=== PATIENT | male | born 1975 | race Asian ===

== ENCOUNTER 2016-10-29 22:15 | Emergency (ER) | payer OTHER ==
[~2016-10-29] VITALS: Ht 162.6 cm; Wt 103.8 kg
[2016-10-29] MEDS ORDERED: CARV3.122 PO (22:49)
[2016-10-29] MEDS ORDERED: GLIP5TAB10 PO (22:49)
[2016-10-29] MEDS ORDERED: LISI2.5T PO (22:49)
[2016-10-29] MEDS ORDERED: LIDOCAINE 1%-EPI 1:100K, 20ML SQ ONE (23:30)
[2016-10-29] MEDS ORDERED: OXYcodone/APAP 5/325MG TABLET PO ONE (23:30)
[2016-10-29] MEDS ORDERED: LIDOCAINE 1%-EPI 1:100K, 20ML ONE (23:32)
[2016-10-29] MEDS ORDERED: OXYcodone/APAP 5/325MG TABLET ONE (23:32)
[2016-10-30 00:37] VITALS: BP 129/73
== END 2016-10-30 00:40 | disposition home or self-care (01) ==
LOC: ED 10-30 00:35
DX: L02.31 Cutaneous abscess of buttock (principal); I10 Essential (primary) hypertension; E11.9 Type 2 diabetes mellitus without complications; Z90.89 Acquired absence of other organs
CPT/HCPCS: 10060; 99283

== ENCOUNTER 2016-11-03 16:32 | Emergency (ER) | payer OTHER ==
[~2016-11-03] VITALS: Ht 162.6 cm; Wt 101.8 kg
[~2016-11-03 16:32] MED LIST: CARV3.122 PO; GLIP5TAB10 PO; LISI2.5T PO
[2016-11-03 16:35] VITALS: BP 138/96
== END 2016-11-03 19:12 | disposition home or self-care (01) ==
LOC: ED 19:05
DX: Z48.01 Encounter for change or removal of surgical wound dressing (principal); I10 Essential (primary) hypertension; E11.9 Type 2 diabetes mellitus without complications; Z90.49 Acquired absence of other specified parts of digestive tract
CPT/HCPCS: 99282

== ENCOUNTER 2017-05-30 15:08 | Emergency (ER) | payer BC, OTHER ==
[~2017-05-30] VITALS: Ht 162.6 cm; Wt 106.5 kg
[~2017-05-30 15:08] MED LIST changes: +AMLO10TA2 PO; +ATOR-2 PO; +HYDR-3342 PO; +LISI-167 PO
[2017-05-30] MEDS ORDERED: SODIUM CHLORIDE FLUSH 10ML SYR IVF ONE (16:00)
[2017-05-30 16:11] LABS: HEMATOCRIT 48.9 % (39.2-51.8); HEMOGLOBIN 15.9 g/dL (13.7-18.0); WHITE BLOOD COUNT 9.1 x10^3/uL (3.4-10)
[2017-05-30 16:18] LABS: BLOOD UREA NITROGEN 24 mg/dL (7-18)
[2017-05-30] MEDS ORDERED: KETOROLAC 30 MG/1 ML ONE (18:22)
[2017-05-30 18:28] VITALS: BP 182/89
[2017-05-30] MEDS ORDERED: KETOROLAC 30 MG/1 ML IM ONE (18:30)
== END 2017-05-30 18:53 | disposition home or self-care (01) ==
LOC: ED 18:47
DX: I10 Essential (primary) hypertension (principal); R51 Headache; E11.9 Type 2 diabetes mellitus without complications
CPT/HCPCS: 36415; 70450; 80048; 82040; 85025; 96372; 99285; J1885

== ENCOUNTER → 2017-07-27 | Outpatient (CLI) | payer BC | END | disposition home or self-care (01) | LOC: CFH 14:21 | PROVIDERS: ATTEND Internal Medicine Nephrology | DX: N28.1 Cyst of kidney, acquired (principal); N18.1 Chronic kidney disease, stage 1 | CPT/HCPCS: 76770 ==

== ENCOUNTER 2018-06-03 09:45 | Emergency (ER) | payer BC, OTHER ==
[~2018-06-03] VITALS: Ht 162.6 cm; Wt 109.1 kg
[~2018-06-03 09:45] MED LIST changes: -AMLO10TA2 PO; +AMLO10TA6 PO
[2018-06-03] MEDS ORDERED: LIDOCAINE-MPF 1%, 5ML ONE (10:20)
[2018-06-03] MEDS ORDERED: OXYcodone/APAP 5/325MG TABLET ONE (10:20)
[2018-06-03] MEDS ORDERED: OXYcodone/APAP 5/325MG TABLET PO ONE (10:30)
[2018-06-03] MEDS ORDERED: LIDOCAINE-MPF 1%, 5ML INFIL ONE (10:30)
[2018-06-03] MEDS ORDERED: CEFTRIAXONE 1,000 MG ONE (10:50)
[2018-06-03 10:57] VITALS: BP 169/91
[2018-06-03] MEDS ORDERED: CEFTRIAXONE 1,000 MG IM ONE (11:00)
== END 2018-06-03 11:44 | disposition home or self-care (01) ==
LOC: ED 11:35
DX: L02.31 Cutaneous abscess of buttock (principal); I10 Essential (primary) hypertension; E11.9 Type 2 diabetes mellitus without complications; Z90.49 Acquired absence of other specified parts of digestive tract
CPT/HCPCS: 10060; 82962; 96372; 99283; J0696

== ENCOUNTER 2018-07-04 15:20 | Emergency (ER) | payer OTHER ==
[~2018-07-04] VITALS: Ht 162.6 cm; Wt 105.2 kg
[2018-07-04 15:35] VITALS: BP 137/70
== END 2018-07-04 16:20 | disposition home or self-care (01) ==
LOC: ED 16:14
DX: H10.89 Other conjunctivitis (principal); B30.8 Other viral conjunctivitis; H00.012 Hordeolum externum right lower eyelid
CPT/HCPCS: 99282

== ENCOUNTER 2018-10-14 04:22 | Emergency (ER) | payer OTHER ==
[~2018-10-14] VITALS: Ht 162.6 cm; Wt 107.0 kg
[~2018-10-14 04:22] MED LIST changes: -AMLO10TA6 PO; +AMLO10TA8 PO
[2018-10-14 04:24] VITALS: BP 167/112
--- NOTE | 2018-10-14 04:34 | NUR ---
C/O RIGHT KNEE PAIN X 3 DAYS; WORSE UPON WAKING THIS AM. NO INJURY. SAME PAIN 2 YEARS AGO BUT NEVER WENT TO [facility] FOR IT. RAJNI BRAUN IN TO [facility] PT. AND DISCUSS POC.
[2018-10-14] MEDS ORDERED: KETOROLAC 30 MG/1 ML ONE (04:48)
--- NOTE | 2018-10-14 04:56 | NUR ---
PT. BACK FROM X-RAY AND MEDICATED PER MAR. AWAITING BLOOD DRAW.
[2018-10-14] MEDS ORDERED: KETOROLAC 30 MG/1 ML IM ONE (05:00)
[2018-10-14 05:11] LABS: BASOPHILS # (AUTO) 0.03 x10^3/uL (0-0.1); BASOPHILS % (AUTO) 0 % (0-1); EOSINOPHILS # (AUTO) 0.17 x10^3/uL (0-0.4); EOSINOPHILS % (AUTO) 2 % (1-7); LYMPHOCYTES # (AUTO) 2.21 x10^3/uL (1-3.4); LYMPHOCYTES % (AUTO) 26 % (22-44); MD NO; MEAN CORPUSCULAR HEMOGLOBIN 26.4 pg (27.5-34.5); MEAN CORPUSCULAR HGB CONC 32.6 g/dL (33.2-36.2); MEAN CORPUSCULAR VOLUME 80.9 fL (81-97); MONOCYTES # (AUTO) 0.61 x10^3/uL (0.2-0.8); MONOCYTES % (AUTO) 7 % (2-9); NEUTROPHILS # (AUTO) 5.41 x10^3/uL (1.8-6.8); NEUTROPHILS % (AUTO) 64 % (42-75); PLATELET COUNT 214 x10^3/uL (130-400); RED BLOOD COUNT 5.87 x10^6/uL (4.38-5.82)
[2018-10-14 05:21] LABS: ALBUMIN 3.4 g/dL (3.4-5.0); ANION GAP 7 mmol/L (5-15); CALCIUM 8.4 mg/dL (8.5-10.1); CHLORIDE 108 mmol/L (98-107)
== END 2018-10-14 05:42 | disposition home or self-care (01) ==
LOC: ED 05:36
DX: M10.061 Idiopathic gout, right knee (principal); E11.65 Type 2 diabetes mellitus with hyperglycemia; I10 Essential (primary) hypertension; I67.4 Hypertensive encephalopathy
CPT/HCPCS: 36415; 73564; 80048; 82040; 84550; 85025; 96372; 99284; J1885

== ENCOUNTER 2019-07-15 02:07 | Emergency (ER) | payer OTHER ==
[~2019-07-15] VITALS: Ht 162.6 cm; Wt 111.0 kg
[2019-07-15 02:10] VITALS: BP 195/106
[2019-07-15] MEDS ORDERED: HYDROcodone/APAP 5/325 TABLET ONE (02:40)
[2019-07-15] MEDS ORDERED: HYDROcodone/APAP 10/325 MG TABLET ONE (02:43)
[2019-07-15 02:49] LABS: BASOPHILS # (AUTO) 0.02 x10^3/uL (0-0.1); BASOPHILS % (AUTO) 0 % (0-1); EOSINOPHILS # (AUTO) 0.04 x10^3/uL (0-0.4); EOSINOPHILS % (AUTO) 0 % (1-7); LYMPHOCYTES # (AUTO) 1.88 x10^3/uL (1-3.4); LYMPHOCYTES % (AUTO) 11 % (22-44); MD NO; MEAN CORPUSCULAR HEMOGLOBIN 26.4 pg (27.5-34.5); MEAN CORPUSCULAR VOLUME 82.4 fL (81-97); MEAN PLATELET VOLUME 9.5 fL (7.4-10.4); MONOCYTES # (AUTO) 1.08 x10^3/uL (0.2-0.8); MONOCYTES % (AUTO) 7 % (2-9); NEUTROPHILS # (AUTO) 13.46 x10^3/uL (1.8-6.8); NEUTROPHILS % (AUTO) 82 % (42-75); PLATELET COUNT 229 x10^3/uL (130-400); RED BLOOD COUNT 6.11 x10^6/uL (4.38-5.82); RED CELL DISTRIBUTION WIDTH 14.2 % (9.4-14.8)
[2019-07-15] MEDS ORDERED: GLYB5TAB3 PO (02:49)
[2019-07-15] MEDS ORDERED: prednisone (02:51)
[2019-07-15] MEDS ORDERED: INSULIN (02:51)
--- NOTE | 2019-07-15 02:51 | NUR ---
9 days of r heel pain, PMD originally placed on melozxicam then was changed to prednisone, takes insulin daily, notes that his sugars have been elevated. Pt has blister inner aspect heel with redness/purple around, very painful. Denies fevers
[2019-07-15] MEDS ORDERED: HYDROcodone/APAP 10/325 MG TABLET PO ONE (03:00)
[2019-07-15 03:03] LABS: ALANINE AMINOTRANSFERASE 46 U/L (12-78); ALBUMIN 3.3 g/dL (3.4-5.0); ANION GAP 8 mmol/L (5-15); CHLORIDE 101 mmol/L (98-107); CREATININE 1.96 mg/dL (0.7-1.3)
[2019-07-15 03:05] LABS: ALKALINE PHOSPHATASE 94 U/L (45-117); BILIRUBIN,TOTAL 0.4 mg/dL (0.2-1.0)
[2019-07-15] MEDS ORDERED: INSULIN REGULAR 100 UNITS/ML, 3ML VIAL SQ-INSULIN ONE (03:27)
[2019-07-15] MEDS ORDERED: CEPHALEXIN 500 MG CAPSULE PO ONE (03:30)
[2019-07-15] MEDS ORDERED: SULFAMETH./TRIMETHOPRIM DS 800MG/160MG TABLET PO ONE (03:30)
[2019-07-15] MEDS ORDERED: SULFAMETH./TRIMETHOPRIM DS 800MG/160MG TABLET ONE (03:41)
[2019-07-15] MEDS ORDERED: CEPHALEXIN 500 MG CAPSULE ONE (03:41)
[2019-07-15] MEDS ORDERED: INSULIN SINGLE DOSE, ER ONE (03:42)
== END 2019-07-15 04:21 | disposition home or self-care (01) ==
LOC: ED 04:00
DX: L02.611 Cutaneous abscess of right foot (principal); E11.22 Type 2 diabetes mellitus with diabetic chronic kidney disease; I12.9 Hypertensive chronic kidney disease with stage 1 through stage 4 chronic kidney disease, or unspecified chronic kidney disease; N18.9 Chronic kidney disease, unspecified; E78.5 Hyperlipidemia, unspecified; E11.65 Type 2 diabetes mellitus with hyperglycemia
CPT/HCPCS: 10060; 36415; 73630; 80053; 85025; 87070; 87077; 87205; 96372; 99284; J1815; 87186

== ENCOUNTER 2019-07-16 21:53 | Inpatient (IN) | payer OTHER ==
[~2019-07-16] VITALS: Ht 162.6 cm; Wt 109.9 kg
[~2019-07-16 21:53] MED LIST changes: +GLYB5TAB3 PO; +INSULIN; +prednisone
[2019-07-17] MEDS ORDERED: IBUPROFEN 600 MG TABLET PO ONE
[2019-07-17] MEDS ORDERED: SODIUM CHLORIDE 0.9% 1,000ML IVBOLUS ONE
[2019-07-17] MEDS ORDERED: SODIUM CHLORIDE FLUSH 10ML SYR IVF ONE
[2019-07-17] MEDS ORDERED: OXYcodone/APAP 5/325MG TABLET PO ONE
[2019-07-17] MEDS ORDERED: CEFAZOLIN PMX 1GM/50ML 50 ML IVPB ONE
[2019-07-17] MEDS ORDERED: LIDOCAINE-MPF 1%, 5ML INFIL ONE
[2019-07-17] MEDS ORDERED: VANCOMYCIN PER PHARMACY MC ONE
[2019-07-17] MEDS ORDERED: morphine SULFATE 10 MG/ML, 1ML IVPush ONE
[2019-07-17 00:16] LABS: BASOPHILS # (AUTO) 0.03 x10^3/uL (0-0.1); BASOPHILS % (AUTO) 0 % (0-1); EOSINOPHILS # (AUTO) 0.14 x10^3/uL (0-0.4); EOSINOPHILS % (AUTO) 1 % (1-7); LYMPHOCYTES % (AUTO) 13 % (22-44); MD NO; MEAN CORPUSCULAR HEMOGLOBIN 25.9 pg (27.5-34.5); MEAN CORPUSCULAR HGB CONC 31.4 g/dL (33.2-36.2); MEAN CORPUSCULAR VOLUME 82.4 fL (81-97); MEAN PLATELET VOLUME 9.3 fL (7.4-10.4); MONOCYTES % (AUTO) 6 % (2-9); NEUTROPHILS # (AUTO) 11.48 x10^3/uL (1.8-6.8); NEUTROPHILS % (AUTO) 79 % (42-75); PLATELET COUNT 214 x10^3/uL (130-400); RED BLOOD COUNT 6.33 x10^6/uL (4.38-5.82); RED CELL DISTRIBUTION WIDTH 14.6 % (9.4-14.8)
--- NOTE | 2019-07-17 00:16 | NUR ---
IV SITE STARTED, LABS DRAWN, IV FLUIDS INFUSING. MONITORS APPLIED, SIDERAILS UP X2, CALL LIGHT WITHIN REACH
[2019-07-17] MEDS ORDERED: IBUPROFEN 600 MG TABLET ONE (00:23)
[2019-07-17] MEDS ORDERED: OXYcodone/APAP 5/325MG TABLET ONE (00:24)
[2019-07-17] MEDS ORDERED: CEFAZOLIN PMX 1GM/50ML 50 ML ONE (00:25)
[2019-07-17] MEDS ORDERED: MIDAZOLAM 1 MG/ML, 2ML ONE (00:25)
[2019-07-17] MEDS ORDERED: LIDOCAINE-MPF 1%, 5ML ONE (00:25)
[2019-07-17 00:27] LABS: ALANINE AMINOTRANSFERASE 41 U/L (12-78); ALBUMIN 3.2 g/dL (3.4-5.0); ANION GAP 3 mmol/L (5-15); CALCIUM 8.3 mg/dL (8.5-10.1); CHLORIDE 107 mmol/L (98-107); CREATININE 1.87 mg/dL (0.7-1.3)
[2019-07-17] MEDS ORDERED: morphine SULFATE 10 MG/ML, 1ML ONE (00:28)
[2019-07-17 00:29] LABS: ALKALINE PHOSPHATASE 88 U/L (45-117); BILIRUBIN,TOTAL 0.3 mg/dL (0.2-1.0); TOTAL PROTEIN 7.9 g/dL (6.4-8.2)
[2019-07-17] MEDS ORDERED: VANCOMYCIN 2,000 MG in SODIUM CHLORIDE 0.9% 500 ML IV ONE (00:30)
--- NOTE | 2019-07-17 00:43 | NUR ---
CONSENT FOR I&D OF ABSCESS SIGNED BY PT AND ERP, COPY PLACED IN PT'S CHART
[2019-07-17] MEDS: MIDAZOLAM 1 MG/ML, 2ML IVPush ONE ×2 (00:51→00:55)
--- NOTE | 2019-07-17 00:53 | NUR ---
ERP, PA AT PT'S BEDSIDE FOR I&D OF ABSCESS TO LATERAL RIGHT FOOT, PT MEDICATED PER MAR, O2 @2L N/C AND ALL MONITORS IN PLACE
--- NOTE | 2019-07-17 01:28 | NUR ---
PT RESTING ON GURNEY, a&oX4, DROWSY BUT RESPONDS EASILY TO VERBAL RESPONSE, MONITORS IN PLACE, SIDERAILS UP X2, CALL LIGHT WITHIN REACH
--- NOTE | 2019-07-17 01:32 | NUR ---
attempted to call report, rn to call this rn back
--- NOTE | 2019-07-17 01:52 | NUR ---
2nd attempt made to call report, placed on hold with no answer
[2019-07-17] MEDS ORDERED: VANCOMYCIN PER PHARMACY MC PRN (02:30)
[2019-07-17] MEDS ORDERED: hydrALAzine 20 MG/ML, 1ML IVPush PRN (02:30)
[2019-07-17] MEDS ORDERED: CEFAZOLIN PMX 1GM/50ML 50 ML IV SCH (02:30)
[2019-07-17] MEDS ORDERED: GABAPENTIN 300 MG CAPSULE PO PRN (02:30)
[2019-07-17] MEDS ORDERED: PHARMACY MAY ADJ FOR RENAL FX MC PRN (02:30)
[2019-07-17] MEDS ORDERED: ONDANSETRON 2MG/ML, 2ML IVPush PRN (02:30)
[2019-07-17 02:41] VITALS: BP 145/84
[2019-07-17] MEDS ORDERED: PHARMACOKINETIC MONITORING MC PRN (03:00)
[2019-07-17] MEDS: HEPARIN 5,000 UNITS/ML, 1ML SQ SCH ×3 (03:20→19:45)
[2019-07-17] MEDS: SODIUM CHLORIDE 0.9% 1,000 ML IV SCH ×2 (03:24→12:37)
[2019-07-17] MEDS ORDERED: CEPH-376 PO (03:51)
[2019-07-17] MEDS ORDERED: SULF-16 PO (03:51)
[2019-07-17 04:28] LABS: HEMOGLOBIN A1C 11.4 % (4.2-6.3)
[2019-07-17] MEDS: INSULIN LISPRO 100 UNITS/ML, PEN SQ-INSULIN SCH ×4 (07:00→22:09)
[2019-07-17 07:26] VITALS: BP 147/97
[2019-07-17] MEDS: AMLODIPINE 10 MG TAB PO SCH (07:55)
[2019-07-17] MEDS: ACETAMINOPHEN 325 MG TABLET PO PRN (07:55)
[2019-07-17] MEDS: CARVEDILOL 3.125 MG TABLET PO SCH ×2 (07:55→19:45)
[2019-07-17] MEDS: AMPICILLIN/SULBACTAM 3 GM in SODIUM CHLORIDE 0.9% 100 ML IV SCH ×3 (08:36→19:45)
[2019-07-17] MEDS ORDERED: INSULIN GLARGINE 100 UNITS/ML, PEN SQ-INSULIN SCH (09:00)
[2019-07-17] MEDS ORDERED: OXYcodone IR 5MG TABLET PO PRN (09:00)
[2019-07-17 09:42] LABS: HCT (SEDRATE) 46.5 % (39.2-51.8)
[2019-07-17 13:29] VITALS: BP 147/83
[2019-07-17 20:09] VITALS: BP 146/86
[2019-07-17] MEDS: INSULIN GLARGINE 100 UNITS/ML, PEN SQ-INSULIN SCH (22:08)
[2019-07-17] MEDS: ATORVASTATIN 80 MG TABLET PO SCH (22:09)
[2019-07-18 00:41] VITALS: BP 152/88
[2019-07-18] MEDS: AMPICILLIN/SULBACTAM 3 GM in SODIUM CHLORIDE 0.9% 100 ML IV SCH ×4 (02:25→21:48)
[2019-07-18] MEDS: HEPARIN 5,000 UNITS/ML, 1ML SQ SCH ×3 (02:56→18:18)
[2019-07-18] MEDS: SODIUM CHLORIDE 0.9% 1,000 ML IV SCH ×2 (04:43→15:49)
[2019-07-18 05:49] LABS: CHLORIDE 108 mmol/L (98-107)
[2019-07-18 05:50] LABS: BASOPHILS # (AUTO) 0.03 x10^3/uL (0-0.1); BASOPHILS % (AUTO) 0 % (0-1); EOSINOPHILS # (AUTO) 0.16 x10^3/uL (0-0.4); EOSINOPHILS % (AUTO) 1 % (1-7); LYMPHOCYTES % (AUTO) 13 % (22-44); MD NO; MEAN CORPUSCULAR HEMOGLOBIN 25.9 pg (27.5-34.5); MEAN CORPUSCULAR HGB CONC 31.7 g/dL (33.2-36.2); MEAN CORPUSCULAR VOLUME 81.6 fL (81-97); MONOCYTES # (AUTO) 0.51 x10^3/uL (0.2-0.8); MONOCYTES % (AUTO) 5 % (2-9); NEUTROPHILS # (AUTO) 9.17 x10^3/uL (1.8-6.8); NEUTROPHILS % (AUTO) 81 % (42-75); PLATELET COUNT 198 x10^3/uL (130-400); RED BLOOD COUNT 5.73 x10^6/uL (4.38-5.82)
[2019-07-18 05:57] LABS: ANION GAP 3 mmol/L (5-15); CHOL/HDL RATIO 5.8; CHOLESTEROL, TOTAL 167 mg/dL (140-239); CREATININE 1.31 mg/dL (0.7-1.3); HDL CHOL % 17 % (26-37); HDL CHOLESTEROL (DIRECT) 29 mg/dL (40-60); LDL CHOLESTEROL,CALCULATED 84 mg/dL (54-169); LDL/HDL RATIO 2.9 (0.5-3.0); TRIGLYCERIDES 269 mg/dL (50-200); VLDL CHOLESTEROL 54 mg/dL (0-25)
[2019-07-18 07:36] VITALS: BP 149/88
[2019-07-18] MEDS: INSULIN GLARGINE 100 UNITS/ML, PEN SQ-INSULIN SCH ×2 (10:10→21:49)
[2019-07-18] MEDS: INSULIN LISPRO 100 UNITS/ML, PEN SQ-INSULIN SCH ×4 (10:11→21:49)
[2019-07-18] MEDS: AMLODIPINE 10 MG TAB PO SCH (10:11)
[2019-07-18] MEDS: CARVEDILOL 3.125 MG TABLET PO SCH ×2 (10:11→18:18)
[2019-07-18 12:54] VITALS: BP 144/81
[2019-07-18] MEDS: ACETAMINOPHEN 325 MG TABLET PO PRN (18:17)
[2019-07-18 19:26] VITALS: BP 153/89
[2019-07-18] MEDS: ATORVASTATIN 80 MG TABLET PO SCH (21:48)
[2019-07-19 01:05] VITALS: BP 157/94
[2019-07-19] MEDS: AMPICILLIN/SULBACTAM 3 GM in SODIUM CHLORIDE 0.9% 100 ML IV SCH ×2 (03:30→10:17)
[2019-07-19] MEDS: HEPARIN 5,000 UNITS/ML, 1ML SQ SCH ×2 (03:30→11:44)
[2019-07-19 05:02] LABS: BASOPHILS # (AUTO) 0.02 x10^3/uL (0-0.1); BASOPHILS % (AUTO) 0 % (0-1); EOSINOPHILS # (AUTO) 0.17 x10^3/uL (0-0.4); EOSINOPHILS % (AUTO) 2 % (1-7); LYMPHOCYTES # (AUTO) 1.84 x10^3/uL (1-3.4); LYMPHOCYTES % (AUTO) 19 % (22-44); MD NO; MEAN CORPUSCULAR HGB CONC 32.1 g/dL (33.2-36.2); MEAN CORPUSCULAR VOLUME 81.1 fL (81-97); MONOCYTES # (AUTO) 0.59 x10^3/uL (0.2-0.8); MONOCYTES % (AUTO) 6 % (2-9); NEUTROPHILS # (AUTO) 7.24 x10^3/uL (1.8-6.8); NEUTROPHILS % (AUTO) 73 % (42-75); PLATELET COUNT 214 x10^3/uL (130-400); RED BLOOD COUNT 5.94 x10^6/uL (4.38-5.82); RED CELL DISTRIBUTION WIDTH 14.1 % (9.4-14.8)
[2019-07-19 05:23] LABS: ANION GAP 5 mmol/L (5-15); CALCIUM 8.3 mg/dL (8.5-10.1); CHLORIDE 106 mmol/L (98-107)
[2019-07-19 05:24] LABS: CREATININE 1.25 mg/dL (0.7-1.3)
[2019-07-19] MEDS: SODIUM CHLORIDE 0.9% 1,000 ML IV SCH (05:31)
[2019-07-19] MEDS: INSULIN LISPRO 100 UNITS/ML, PEN SQ-INSULIN SCH ×2 (07:00→12:06)
[2019-07-19 07:10] VITALS: BP 146/89
[2019-07-19] MEDS: CARVEDILOL 3.125 MG TABLET PO SCH (08:07)
[2019-07-19] MEDS: AMLODIPINE 10 MG TAB PO SCH (08:07)
[2019-07-19] MEDS: INSULIN GLARGINE 100 UNITS/ML, PEN SQ-INSULIN SCH (09:00)
[2019-07-19] MEDS ORDERED: INSU100I13 SQ-INSULIN (11:12)
[2019-07-19] MEDS ORDERED: CEPH-368 PO (11:12)
== END 2019-07-19 14:50 | disposition home or self-care (01) | DRG 602 ==
LOC: ED 07-17 00:10 → EDIP 07-17 01:04 → 3N 07-17 02:16 → DCLOUNGE 07-19 14:37
PROVIDERS: ADMIT Family Medicine; ATTEND Family Medicine
PROC: 0Y9M0ZZ Drainage of Right Foot, Open Approach (ICD-10-PCS; principal; 2019-07-17)
DX: L03.115 Cellulitis of right lower limb (principal); N17.0 Acute kidney failure with tubular necrosis; L02.611 Cutaneous abscess of right foot; Z68.41 Body mass index [BMI] 40.0-44.9, adult; B95.61 Methicillin susceptible Staphylococcus aureus infection as the cause of diseases classified elsewhere; E11.22 Type 2 diabetes mellitus with diabetic chronic kidney disease; E11.40 Type 2 diabetes mellitus with diabetic neuropathy, unspecified; E11.65 Type 2 diabetes mellitus with hyperglycemia; E66.9 Obesity, unspecified; E78.5 Hyperlipidemia, unspecified; I12.9 Hypertensive chronic kidney disease with stage 1 through stage 4 chronic kidney disease, or unspecified chronic kidney disease; N18.3 Chronic kidney disease, stage 3 (moderate)
CPT/HCPCS: 36415; 80048; 80053; 80061; 82962; 83036; 84443; 85025; 85651; 86140; 96365; 96368; 99152; G0378; J0295; J0690; J1644; J3370; J1815; J2270; J7030; J7040

== ENCOUNTER → 2019-07-21 | Outpatient (CLI) | payer OTHER ==
[~2019-07-21] MED LIST changes: +CEPH-368 PO; +CEPH-376 PO; +INSU100I13 SQ-INSULIN; +SULF-16 PO
== END | disposition home or self-care (01) ==
LOC: WOUND 13:43
PROVIDERS: ATTEND Podiatrist Foot & Ankle Surgery
DX: E11.621 Type 2 diabetes mellitus with foot ulcer (principal); L97.412 Non-pressure chronic ulcer of right heel and midfoot with fat layer exposed; E78.5 Hyperlipidemia, unspecified; E66.9 Obesity, unspecified; E11.40 Type 2 diabetes mellitus with diabetic neuropathy, unspecified; E11.22 Type 2 diabetes mellitus with diabetic chronic kidney disease; I12.9 Hypertensive chronic kidney disease with stage 1 through stage 4 chronic kidney disease, or unspecified chronic kidney disease; N18.9 Chronic kidney disease, unspecified; Z79.4 Long term (current) use of insulin; Z68.41 Body mass index [BMI] 40.0-44.9, adult; Z86.14 Personal history of Methicillin resistant Staphylococcus aureus infection
CPT/HCPCS: 11042; 99215

== ENCOUNTER → 2019-07-28 | Outpatient (CLI) | payer OTHER | END | disposition home or self-care (01) | LOC: WOUND 09:53 | PROVIDERS: ATTEND Podiatrist Foot & Ankle Surgery | DX: E11.621 Type 2 diabetes mellitus with foot ulcer (principal); L97.412 Non-pressure chronic ulcer of right heel and midfoot with fat layer exposed; E78.5 Hyperlipidemia, unspecified; E66.9 Obesity, unspecified; E11.40 Type 2 diabetes mellitus with diabetic neuropathy, unspecified; E11.22 Type 2 diabetes mellitus with diabetic chronic kidney disease; I12.9 Hypertensive chronic kidney disease with stage 1 through stage 4 chronic kidney disease, or unspecified chronic kidney disease; N18.9 Chronic kidney disease, unspecified; Z79.4 Long term (current) use of insulin; Z68.41 Body mass index [BMI] 40.0-44.9, adult; Z86.14 Personal history of Methicillin resistant Staphylococcus aureus infection | CPT/HCPCS: 11042 ==

== ENCOUNTER → 2019-08-04 | Outpatient (CLI) | payer OTHER | END | disposition home or self-care (01) | LOC: WOUND 10:30 | PROVIDERS: ATTEND Podiatrist Foot & Ankle Surgery | DX: E11.621 Type 2 diabetes mellitus with foot ulcer (principal); L97.412 Non-pressure chronic ulcer of right heel and midfoot with fat layer exposed; L03.115 Cellulitis of right lower limb; E11.40 Type 2 diabetes mellitus with diabetic neuropathy, unspecified; E78.5 Hyperlipidemia, unspecified; E11.22 Type 2 diabetes mellitus with diabetic chronic kidney disease; I12.9 Hypertensive chronic kidney disease with stage 1 through stage 4 chronic kidney disease, or unspecified chronic kidney disease; N18.3 Chronic kidney disease, stage 3 (moderate); E66.9 Obesity, unspecified; Z68.41 Body mass index [BMI] 40.0-44.9, adult; Z79.4 Long term (current) use of insulin | CPT/HCPCS: 11042 ==

== ENCOUNTER → 2019-08-18 | Outpatient (CLI) | payer OTHER | END | disposition home or self-care (01) | LOC: WOUND 09:55 | PROVIDERS: ATTEND Podiatrist Foot & Ankle Surgery | DX: E11.621 Type 2 diabetes mellitus with foot ulcer (principal); L97.412 Non-pressure chronic ulcer of right heel and midfoot with fat layer exposed; L03.115 Cellulitis of right lower limb; E11.40 Type 2 diabetes mellitus with diabetic neuropathy, unspecified; E11.22 Type 2 diabetes mellitus with diabetic chronic kidney disease; E66.9 Obesity, unspecified; I12.9 Hypertensive chronic kidney disease with stage 1 through stage 4 chronic kidney disease, or unspecified chronic kidney disease; N18.3 Chronic kidney disease, stage 3 (moderate); Z67.41 Type O blood, Rh negative; Z68.41 Body mass index [BMI] 40.0-44.9, adult; Z79.4 Long term (current) use of insulin | CPT/HCPCS: 99213 ==

== ENCOUNTER 2019-12-09 10:17 | Outpatient (CLI) | payer OTHER | END 2019-12-09 23:59 | disposition home or self-care (01) | LOC: CFH 10:17 | PROVIDERS: ATTEND Surgery | DX: N28.1 Cyst of kidney, acquired (principal); E11.22 Type 2 diabetes mellitus with diabetic chronic kidney disease; I13.0 Hypertensive heart and chronic kidney disease with heart failure and stage 1 through stage 4 chronic kidney disease, or unspecified chronic kidney disease; N18.3 Chronic kidney disease, stage 3 (moderate); I50.9 Heart failure, unspecified; E78.5 Hyperlipidemia, unspecified; R80.9 Proteinuria, unspecified | CPT/HCPCS: 76770 ==

== ENCOUNTER 2020-05-15 03:54 | Observation (INO) | payer OTHER ==
[~2020-05-15] VITALS: Ht 162.6 cm; Wt 105.6 kg
[2020-05-15] MEDS ORDERED: ASPIRIN 81 MG TABLET CHEW ONE (04:09)
[2020-05-15] MEDS ORDERED: ONDANSETRON 2MG/ML, 2ML ONE (04:09)
[2020-05-15] MEDS ORDERED: MORPHINE SULFATE 4 MG/ML, 1ML ONE (04:09)
[2020-05-15] MEDS ORDERED: ONDANSETRON 2MG/ML, 2ML IVPush ONE (04:30)
[2020-05-15] MEDS ORDERED: SODIUM CHLORIDE FLUSH 10ML SYR IVF ONE (04:30)
[2020-05-15] MEDS ORDERED: ASPIRIN 81 MG TABLET CHEW PO ONE (04:30)
[2020-05-15] MEDS ORDERED: MORPHINE SULFATE 4 MG/ML, 1ML IVPush PRN (04:30)
[2020-05-15 04:32] LABS: BASOPHILS # (AUTO) 0.03 x10^3/uL (0-0.1); BASOPHILS % (AUTO) 0 % (0-1); EOSINOPHILS # (AUTO) 0.26 x10^3/uL (0-0.4); EOSINOPHILS % (AUTO) 3 % (1-7); LYMPHOCYTES # (AUTO) 2.08 x10^3/uL (1-3.4); LYMPHOCYTES % (AUTO) 24 % (22-44); MD NO; MEAN CORPUSCULAR HEMOGLOBIN 25.9 pg (27.5-34.5); MEAN PLATELET VOLUME 8.9 fL (7.4-10.4); MONOCYTES # (AUTO) 0.62 x10^3/uL (0.2-0.8); MONOCYTES % (AUTO) 7 % (2-9); NEUTROPHILS # (AUTO) 5.79 x10^3/uL (1.8-6.8); NEUTROPHILS % (AUTO) 66 % (42-75); PLATELET COUNT 197 x10^3/uL (130-400); RED BLOOD COUNT 5.94 x10^6/uL (4.38-5.82)
--- NOTE | 2020-05-15 04:37 | NUR ---
PT AMBULATORY BACK FROM BATHROOM WHEN THIS RN ARRIVED TO ROOM. PT THEN CONNECTED TO CARDIAC, BP AND O2 MONITORS. PT SITTING IN BED, POSITIONED TO COMFORT AND CALL LIGHT IN REACH. ERP TO BEDSIDE.
[2020-05-15 04:39] LABS: ALANINE AMINOTRANSFERASE 43 U/L (12-78); ALBUMIN 3.2 g/dL (3.4-5.0); ANION GAP 6 mmol/L (5-15); CALCIUM 8.4 mg/dL (8.5-10.1); CHLORIDE 103 mmol/L (98-107)
[2020-05-15 04:43] LABS: ALKALINE PHOSPHATASE 99 U/L (45-117); BILIRUBIN,TOTAL 0.3 mg/dL (0.2-1.0); TOTAL PROTEIN 7.5 g/dL (6.4-8.2); TROPONIN I 0.073 ng/mL (0.000-0.045)
--- NOTE | 2020-05-15 05:03 | NUR ---
ERP MADE AWARE OF TROPONIN VALUE. PT SLEEPING IN BED, NADN.
--- NOTE | 2020-05-15 05:12 | NUR ---
PT SITTING IN BED, ON PHONE,
[2020-05-15] MEDS ORDERED: HEPARIN 5,000 UNITS/ML, 1ML ONE (05:52)
[2020-05-15] MEDS ORDERED: HEPARIN 25,000 UNITS/250ML PMX 250 ML ONE (05:52)
[2020-05-15] MEDS ORDERED: HEPARIN 5,000 UNITS/ML, 1ML IV ONE (06:00)
[2020-05-15] MEDS: HEPARIN 25,000 UNITS/250ML PMX 250 ML IV PRN (06:03)
--- NOTE | 2020-05-15 06:36 | NUR ---
PT SITTING IN BED, EYES CLOSED RESPIRATIONS EVEN AND UNLABORED, NADN.
--- NOTE | 2020-05-15 07:09 | NUR ---
BEDSIDE REPORT TO KRISTI TRIPATHI.
--- NOTE | 2020-05-15 07:10 | NUR ---
ATTEMPTED TO CALL REPORT. INPATIENT RN UNAVAILABLE. SHE WILL CALL BACK WHEN READY
[2020-05-15] MEDS ORDERED: ONDANSETRON ODT 4 MG PO PRN (08:00)
[2020-05-15] MEDS ORDERED: ACETAMINOPHEN 325 MG TABLET PO PRN (08:00)
[2020-05-15] MEDS ORDERED: TRAZODONE 50MG TABLET PO PRN (08:00)
[2020-05-15] MEDS ORDERED: ONDANSETRON 2MG/ML, 2ML IVPush PRN (08:00)
[2020-05-15] MEDS ORDERED: NITROGLYCERIN 0.4 MG BOTTLE (25 TABS) SL PRN (08:00)
[2020-05-15] MEDS ORDERED: METOCLOPRAMIDE 5 MG/ML, 2ML IVPush PRN (08:00)
[2020-05-15 08:29] LABS: C-REACTIVE PROTEIN, QUANT 0.27 mg/dL (0.02-0.49); CHOL/HDL RATIO 3.7; LDL/HDL RATIO 1.8 (0.5-3.0)
[2020-05-15] MEDS ORDERED: INSU100I34 SQ (08:36)
[2020-05-15] MEDS ORDERED: HYDR-3342 PO (08:36)
[2020-05-15] MEDS ORDERED: LINA5TAB PO (08:36)
[2020-05-15] MEDS ORDERED: GLYB5TAB3 PO (08:36)
[2020-05-15] MEDS ORDERED: LISI-170 PO (08:36)
[2020-05-15] MEDS ORDERED: AMLO1CAP2 PO (08:36)
[2020-05-15] MEDS ORDERED: CLON-275 PO (08:36)
[2020-05-15] MEDS ORDERED: SEMA0.25 SQ (08:36)
[2020-05-15] MEDS ORDERED: INSU300I3 SC (08:36)
[2020-05-15] MEDS ORDERED: CARV25TA12 PO (08:37)
[2020-05-15 09:03] VITALS: BP 133/89
[2020-05-15] MEDS ORDERED: HEPARIN 5,000 UNITS/ML, 1ML SQ SCH (09:30)
[2020-05-15] MEDS: CARVEDILOL 12.5 MG TABLET PO SCH ×2 (10:05→20:34)
[2020-05-15] MEDS: AMLODIPINE 10 MG TAB PO SCH (10:05)
[2020-05-15] MEDS: INSULIN GLARGINE 100 UNITS/ML, PEN SQ-INSULIN SCH (10:05)
[2020-05-15 11:02] LABS: TROPONIN I 0.315 ng/mL (0.000-0.045)
[2020-05-15] MEDS: INSULIN LISPRO 100 UNITS/ML, PEN SQ-INSULIN SCH ×3 (11:40→20:35)
[2020-05-15 12:28] VITALS: BP 137/94
[2020-05-15] MEDS: HEPARIN 5,000 UNITS/ML, 1ML IV PRN (13:32)
[2020-05-15 18:18] VITALS: BP 154/97
[2020-05-15 20:30] VITALS: BP 148/93
[2020-05-15] MEDS: ATORVASTATIN 80 MG TABLET PO SCH (20:34)
[2020-05-16 00:44] VITALS: BP 116/70
[2020-05-16] MEDS: HEPARIN 5,000 UNITS/ML, 1ML IV PRN (03:23)
[2020-05-16] MEDS: ASPIRIN 325 MG TABLET EC PO SCH (06:00)
[2020-05-16] MEDS: HEPARIN 25,000 UNITS/250ML PMX 250 ML IV PRN (06:30)
[2020-05-16 07:14] VITALS: BP 136/89
[2020-05-16] MEDS: INSULIN LISPRO 100 UNITS/ML, PEN SQ-INSULIN SCH ×4 (08:29→20:11)
[2020-05-16] MEDS: CARVEDILOL 12.5 MG TABLET PO SCH ×2 (08:32→20:10)
[2020-05-16] MEDS: AMLODIPINE 10 MG TAB PO SCH (08:33)
[2020-05-16] MEDS: INSULIN GLARGINE 100 UNITS/ML, PEN SQ-INSULIN SCH (08:41)
[2020-05-16] MEDS ORDERED: SODIUM CHLORIDE 0.9% 1,000 ML IV SCH (11:00)
[2020-05-16 12:57] VITALS: BP 120/78
[2020-05-16] MEDS ORDERED: FENTANYL PF 100 MCG/2ML ONE (15:05)
[2020-05-16] MEDS ORDERED: LIDOCAINE-MPF 1%, 5ML ONE (15:05)
[2020-05-16] MEDS ORDERED: MIDAZOLAM 1 MG/ML, 2ML ONE (15:05)
[2020-05-16] MEDS ORDERED: NITROGLYCERIN 30 MCG/ML, 20ML VIAL ONE (15:05)
[2020-05-16] MEDS ORDERED: VERAPAMIL 2.5 MG/ML, 2ML ONE (15:05)
[2020-05-16 19:44] VITALS: BP 132/84
[2020-05-16] MEDS: ATORVASTATIN 80 MG TABLET PO SCH (20:10)
[2020-05-17 01:19] VITALS: BP 134/81
[2020-05-17] MEDS: ASPIRIN 325 MG TABLET EC PO SCH (05:30)
[2020-05-17 05:38] LABS: ANION GAP 6 mmol/L (5-15); CHLORIDE 106 mmol/L (98-107)
[2020-05-17 05:39] LABS: CREATININE 1.31 mg/dL (0.7-1.3)
[2020-05-17 07:54] VITALS: BP 155/95
[2020-05-17] MEDS: INSULIN GLARGINE 100 UNITS/ML, PEN SQ-INSULIN SCH (08:47)
[2020-05-17] MEDS: INSULIN LISPRO 100 UNITS/ML, PEN SQ-INSULIN SCH ×2 (08:48→11:20)
[2020-05-17] MEDS: AMLODIPINE 10 MG TAB PO SCH (08:48)
[2020-05-17] MEDS: CARVEDILOL 12.5 MG TABLET PO SCH (08:49)
[2020-05-17] MEDS ORDERED: LISINOPRIL 5 MG TABLET PO SCH (09:00)
[2020-05-17] MEDS ORDERED: ASPI-515 PO (11:28)
[2020-05-17] MEDS ORDERED: LISI5TAB7 PO (11:28)
[2020-05-17] MEDS ORDERED: ATOR-2 PO (11:28)
[2020-05-17] MEDS ORDERED: NITR0.4T28 SL (11:28)
[2020-05-17] MEDS ORDERED: ISOS30TA8 PO (11:28)
[2020-05-17] MEDS ORDERED: FLU VACC QS2020-21(6MOS UP)/PF 60MCG/0.5 ML SYR IM-VACC ONE (12:00)
[2020-05-17 13:58] VITALS: BP 148/65
== END 2020-05-17 15:30 | disposition home or self-care (01) ==
LOC: ED 05:18 → EDIP 06:16 → INTOOBSV 06:16 → 5SO 08:45 → INTOOBSV 12:16 → OBSVTOIN 12:16 → 5SO 14:38 → DCLOUNGE 05-17 14:57
PROVIDERS: ADMIT Internal Medicine; ATTEND Internal Medicine
DX: I24.9 Acute ischemic heart disease, unspecified (principal); I13.0 Hypertensive heart and chronic kidney disease with heart failure and stage 1 through stage 4 chronic kidney disease, or unspecified chronic kidney disease; E11.22 Type 2 diabetes mellitus with diabetic chronic kidney disease; I50.40 Unspecified combined systolic (congestive) and diastolic (congestive) heart failure; N17.9 Acute kidney failure, unspecified; N18.2 Chronic kidney disease, stage 2 (mild); E11.65 Type 2 diabetes mellitus with hyperglycemia; I25.5 Ischemic cardiomyopathy; E78.5 Hyperlipidemia, unspecified; E66.9 Obesity, unspecified; J45.909 Unspecified asthma, uncomplicated; R35.0 Frequency of micturition; I21.4 Non-ST elevation (NSTEMI) myocardial infarction; M10.9 Gout, unspecified; R79.89 Other specified abnormal findings of blood chemistry; Z79.4 Long term (current) use of insulin; Z79.899 Other long term (current) drug therapy; Z68.39 Body mass index [BMI] 39.0-39.9, adult; Z23 Encounter for immunization
CPT/HCPCS: 36415; 71045; 71250; 80048; 80053; 80061; 82962; 83036; 83615; 83880; 84484; 85025; 85379; 85520; 86140; 90686; 93005; 93306; 93458; 96365; 96366; 96375; 96376; 99156; 99285; C1769; C1894; G0378; J1644; J2250; J2270; J2405; J3010; J7030; Q9967

== ENCOUNTER 2020-08-02 12:51 | Inpatient (IN) | payer OTHER ==
[~2020-08-02] VITALS: Ht 162.6 cm; Wt 104.0 kg
[~2020-08-02 12:51] MED LIST changes: +AMLO-211 PO; -AMLO10TA8 PO; +AMLO1CAP2 PO; +ASPI-515 PO; +CARV25TA12 PO; +CLON-275 PO; +INSU100I34 SQ; +INSU300I3 SC; +ISOS30TA8 PO; +LINA5TAB PO; +LISI-170 PO; +LISI5TAB7 PO; +NITR0.4T28 SL; +SEMA0.25 SQ
--- NOTE | 2020-08-02 13:35 | NUR ---
PT CAME IN CO OF SOB X 2 DAYS. PT HAS HX OF CHF AND COPD. EKG COMPLETE. PT CONNECTED TO ALL MONITORING EQUIPMENT.
[2020-08-02 13:45] LABS: BASOPHILS % (AUTO) 1 % (0-1); EOSINOPHILS % (AUTO) 0 % (1-7); LYMPHOCYTES % (AUTO) 15 % (22-44); MEAN CORPUSCULAR HEMOGLOBIN 26.2 pg (27.5-34.5); MEAN CORPUSCULAR HGB CONC 32.7 g/dL (33.2-36.2); MEAN PLATELET VOLUME 8.5 fL (7.4-10.4); MONOCYTES % (AUTO) 13 % (2-9); NEUTROPHILS % (AUTO) 71 % (42-75); PLATELET COUNT 169 x10^3/uL (130-400); RED BLOOD COUNT 5.75 x10^6/uL (4.38-5.82); RED CELL DISTRIBUTION WIDTH 13.3 % (9.4-14.8)
[2020-08-02 13:54] LABS: MD NO
[2020-08-02 13:55] LABS: ALBUMIN 3.1 g/dL (3.4-5.0); ANION GAP 6 mmol/L (5-15); CALCIUM 8.5 mg/dL (8.5-10.1); CHLORIDE 110 mmol/L (98-107); CREATININE 2.17 mg/dL (0.7-1.3)
[2020-08-02] MEDS ORDERED: CEFTRIAXONE PMX 1GM/50ML 50 ML ONE (13:57)
[2020-08-02] MEDS ORDERED: DEXAMETHASONE 4 MG TABLET ONE (13:57)
[2020-08-02] MEDS ORDERED: SODIUM CHLORIDE 0.9% 1,000ML IVBOLUS ONE ×2 (14:00→15:30)
[2020-08-02] MEDS ORDERED: DEXAMETHASONE 4 MG TABLET PO ONE (14:00)
[2020-08-02] MEDS ORDERED: CEFTRIAXONE PMX 1GM/50ML 50 ML IVPB ONE (14:00)
[2020-08-02] MEDS ORDERED: AZITHROMYCIN 500 MG in SODIUM CHLORIDE 0.9% 250 ML IVPB ONE (14:00)
[2020-08-02] MEDS ORDERED: SODIUM CHLORIDE FLUSH 10ML SYR IVF ONE (14:00)
[2020-08-02] MEDS ORDERED: ACETAMINOPHEN 500 MG TABLET ONE (14:06)
--- NOTE | 2020-08-02 14:09 | NUR ---
PT O2 SAT DROPPED TO 88%. PT PLACED ON 2 LITERS VIZ NC. IV STARTED. ABX GIVEN AFTER BLOOD CULTURES WERE DRAWN.
[2020-08-02 14:22] LABS: TROPONIN I 0.077 ng/mL (0.000-0.045)
[2020-08-02] MEDS ORDERED: ACETAMINOPHEN 500 MG TABLET PO ONE (14:30)
[2020-08-02] MEDS ORDERED: ASPIRIN 81 MG TABLET CHEW PO ONE (14:30)
[2020-08-02] MEDS ORDERED: ASPIRIN 81 MG TABLET CHEW ONE (14:57)
--- NOTE | 2020-08-02 14:57 | NUR ---
REPORT TO KRISTI BERNAL
--- NOTE | 2020-08-02 16:03 | NUR ---
PATIENT RESTING ON BED WITH EYES CLOSED, NAD, STATES FEELING BETTER OVER WHEN HE CAME IN. WILL CONTINUE TO MONITOR.
[2020-08-02 16:11] LABS: ALBUMIN 3.1 g/dL (3.4-5.0)
[2020-08-02 16:18] LABS: BILIRUBIN, DIRECT 0.2 mg/dL (0.1-0.2); BILIRUBIN,INDIRECT 0.4 mg/dL (0.0-2.0); BILIRUBIN,TOTAL 0.6 mg/dL (0.2-1.0); C-REACTIVE PROTEIN, QUANT 3.84 mg/dL (0.02-0.49); TOTAL PROTEIN 7.6 g/dL (6.4-8.2)
[2020-08-02] MEDS ORDERED: DOCUSATE 100 MG CAPSULE PO PRN (16:30)
[2020-08-02] MEDS ORDERED: GUAIFENESIN/DM 200-20MG, 10ML UDC PO PRN (16:30)
[2020-08-02] MEDS ORDERED: LIDODERM 5% PATCH TD PRN (16:30)
[2020-08-02] MEDS ORDERED: ACETAMINOPHEN 325 MG TABLET PO PRN (16:30)
[2020-08-02] MEDS ORDERED: DILTIAZEM 5 MG/ML, 5ML IVPush PRN (16:30)
[2020-08-02] MEDS ORDERED: hydrALAzine 20 MG/ML, 1ML IVPush PRN (16:30)
[2020-08-02] MEDS ORDERED: ONDANSETRON 2MG/ML, 2ML IVPush PRN (16:30)
[2020-08-02] MEDS ORDERED: HEPARIN 5,000 UNITS/ML, 1ML ONE (16:51)
[2020-08-02] MEDS ORDERED: FUROSEMIDE 40 MG/4 ML ONE (16:51)
[2020-08-02] MEDS ORDERED: ASCORBIC ACID 500 MG TABLET ONE (16:52)
[2020-08-02] MEDS ORDERED: DEXTROSE 50%, 50ML SYRINGE IVPush PRN (17:00)
[2020-08-02] MEDS ORDERED: DEXTROSE 4 GM TAB.CHEW PO PRN (17:00)
[2020-08-02] MEDS ORDERED: GLUCAGON 1 MG IM PRN (17:00)
[2020-08-02] MEDS ORDERED: FUROSEMIDE 40 MG/4 ML IV SCH (17:00)
[2020-08-02] MEDS: ASCORBIC ACID 500 MG TABLET PO SCH (17:06)
[2020-08-02] MEDS: HEPARIN 5,000 UNITS/ML, 1ML SQ SCH ×2 (17:07→23:54)
[2020-08-02 17:15] LABS: FREE T4 (FREE THYROXINE) 1.1 ng/dL (0.76-1.46)
--- NOTE | 2020-08-02 19:20 | NUR ---
Patient assisted to restroom, tolerated well. Denies CP, increasing shortness of breath, headache or cough.
[2020-08-02 20:51] VITALS: BP 135/85
[2020-08-02] MEDS ORDERED: INSULIN GLARGINE 100 UNITS/ML, PEN SQ-INSULIN SCH (21:00)
[2020-08-02] MEDS: MELATONIN 5 MG TABLET PO SCH (21:34)
[2020-08-02] MEDS: CARVEDILOL 25 MG TABLET PO SCH (21:35)
[2020-08-02] MEDS: ATORVASTATIN 80 MG TABLET PO SCH (21:35)
[2020-08-02] MEDS: SODIUM CHLORIDE FLUSH 10ML SYR IVF SCH ×2 (21:36)
[2020-08-02] MEDS: INSULIN LISPRO 100 UNITS/ML, PEN SQ-INSULIN SCH (22:25)
[2020-08-02 22:51] LABS: MICROSCOPIC AUTO
[2020-08-02 22:58] LABS: CHLORIDE,URINE RANDOM 118 mmol/L; POTASSIUM,URINE RANDOM 57 mmol/L; SODIUM,URINE RANDOM 68 mmol/L
[2020-08-03 01:54] VITALS: BP 126/80
[2020-08-03 05:40] LABS: BASOPHILS % (AUTO) 0 % (0-1); EOSINOPHILS % (AUTO) 0 % (1-7); LYMPHOCYTES % (AUTO) 15 % (22-44); MEAN CORPUSCULAR HEMOGLOBIN 26.2 pg (27.5-34.5); MEAN CORPUSCULAR HGB CONC 32.2 g/dL (33.2-36.2); MEAN PLATELET VOLUME 8.6 fL (7.4-10.4); MONOCYTES % (AUTO) 8 % (2-9); NEUTROPHILS % (AUTO) 77 % (42-75); PLATELET COUNT 181 x10^3/uL (130-400); RED BLOOD COUNT 5.39 x10^6/uL (4.38-5.82)
[2020-08-03 05:49] LABS: ANION GAP 6 mmol/L (5-15); CHLORIDE 111 mmol/L (98-107)
[2020-08-03 05:51] LABS: CREATININE 1.69 mg/dL (0.7-1.3)
[2020-08-03 06:04] LABS: MD NO
[2020-08-03 07:00] LABS: TROPONIN I 0.038 ng/mL (0.000-0.045)
[2020-08-03] MEDS ORDERED: REMDESIVIR 200 MG in SODIUM CHLORIDE 0.9% 250 ML IVPB ONE (07:00)
[2020-08-03 07:49] VITALS: BP 147/89
[2020-08-03] MEDS: AZITHROMYCIN 500 MG TABLET PO SCH (08:52)
[2020-08-03] MEDS: POTASSIUM CHLORIDE 20 MEQ TAB.ER.PRT PO SCH (08:52)
[2020-08-03] MEDS: ZINC SULFATE 220 MG CAPSULE PO SCH (08:52)
[2020-08-03] MEDS: THIAMINE 100MG TABLET PO SCH (08:52)
[2020-08-03] MEDS: LINAGLIPTIN 5 MG TAB PO SCH (08:53)
[2020-08-03] MEDS: ISOSORBIDE MONONITRATE ER 30 MG TABLET PO SCH (08:53)
[2020-08-03] MEDS: CHOLECALCIFEROL 5,000u TAB PO SCH (08:53)
[2020-08-03] MEDS: ASPIRIN 81 MG TABLET EC PO SCH (08:53)
[2020-08-03] MEDS: ASCORBIC ACID 500 MG TABLET PO SCH ×2 (08:53→16:21)
[2020-08-03] MEDS: DEXAMETHASONE 4 MG/ML, 1ML IVPush SCH (08:53)
[2020-08-03] MEDS: CARVEDILOL 25 MG TABLET PO SCH ×2 (08:53→19:51)
[2020-08-03] MEDS: FUROSEMIDE 40 MG/4 ML IV SCH (08:54)
[2020-08-03] MEDS: SODIUM CHLORIDE FLUSH 10ML SYR IVF SCH ×4 (08:55→19:50)
[2020-08-03] MEDS: HEPARIN 5,000 UNITS/ML, 1ML SQ SCH ×2 (08:55→16:21)
[2020-08-03] MEDS: INSULIN GLARGINE 100 UNITS/ML, PEN SQ-INSULIN SCH ×2 (08:56→19:42)
[2020-08-03] MEDS: INSULIN LISPRO 100 UNITS/ML, PEN SQ-INSULIN SCH ×4 (08:57→19:42)
[2020-08-03] MEDS ORDERED: INSULIN GLARGINE 100 UNITS/ML, PEN SQ-INSULIN SCH (09:00)
[2020-08-03] MEDS: CEFTRIAXONE PMX 2GM/50ML 50 ML IVPB SCH (11:57)
[2020-08-03 11:59] VITALS: BP 124/76
[2020-08-03] MEDS ORDERED: INSULIN LISPRO 100 UNITS/ML, PEN SQ-INSULIN SCH (16:00)
[2020-08-03 16:19] VITALS: BP 105/69
[2020-08-03 19:49] VITALS: BP 132/79
[2020-08-03] MEDS: MELATONIN 5 MG TABLET PO SCH (19:51)
[2020-08-03] MEDS: ATORVASTATIN 80 MG TABLET PO SCH (19:52)
[2020-08-04] MEDS: HEPARIN 5,000 UNITS/ML, 1ML SQ SCH ×3 (00:20→16:25)
[2020-08-04 01:50] VITALS: BP 134/84
[2020-08-04 05:45] LABS: ALBUMIN 2.9 g/dL (3.4-5.0); ANION GAP 4 mmol/L (5-15); CALCIUM 8.3 mg/dL (8.5-10.1); CHLORIDE 112 mmol/L (98-107)
[2020-08-04 05:49] LABS: ALANINE AMINOTRANSFERASE 41 U/L (12-78); ALKALINE PHOSPHATASE 65 U/L (45-117); BILIRUBIN,TOTAL 0.5 mg/dL (0.2-1.0); CREATININE 1.49 mg/dL (0.7-1.3); TOTAL PROTEIN 7.1 g/dL (6.4-8.2)
[2020-08-04 06:40] VITALS: BP 137/86
[2020-08-04] MEDS: INSULIN LISPRO 100 UNITS/ML, PEN SQ-INSULIN SCH ×6 (07:00→21:14)
[2020-08-04 08:00] VITALS: BP 152/81
[2020-08-04] MEDS: DEXAMETHASONE 4 MG/ML, 1ML IVPush SCH (08:15)
[2020-08-04] MEDS: FUROSEMIDE 40 MG/4 ML IV SCH (08:15)
[2020-08-04] MEDS: SODIUM CHLORIDE FLUSH 10ML SYR IVF SCH ×4 (08:15→21:00)
[2020-08-04] MEDS: THIAMINE 100MG TABLET PO SCH (08:16)
[2020-08-04] MEDS: LINAGLIPTIN 5 MG TAB PO SCH (08:16)
[2020-08-04] MEDS: ISOSORBIDE MONONITRATE ER 30 MG TABLET PO SCH (08:16)
[2020-08-04] MEDS: CHOLECALCIFEROL 5,000u TAB PO SCH (08:16)
[2020-08-04] MEDS: ZINC SULFATE 220 MG CAPSULE PO SCH (08:16)
[2020-08-04] MEDS: ASCORBIC ACID 500 MG TABLET PO SCH ×2 (08:16→16:25)
[2020-08-04] MEDS: LISINOPRIL 5 MG TABLET PO SCH (08:16)
[2020-08-04] MEDS: AZITHROMYCIN 500 MG TABLET PO SCH (08:16)
[2020-08-04] MEDS: POTASSIUM CHLORIDE 20 MEQ TAB.ER.PRT PO SCH (08:16)
[2020-08-04] MEDS: ASPIRIN 81 MG TABLET EC PO SCH (08:16)
[2020-08-04] MEDS: CARVEDILOL 25 MG TABLET PO SCH ×2 (08:17→21:14)
[2020-08-04] MEDS: CEFTRIAXONE PMX 2GM/50ML 50 ML IVPB SCH (08:23)
[2020-08-04] MEDS: INSULIN GLARGINE 100 UNITS/ML, PEN SQ-INSULIN SCH ×2 (08:26→21:13)
[2020-08-04] MEDS: REMDESIVIR 100 MG in SODIUM CHLORIDE 0.9% 250 ML IVPB SCH (09:29)
[2020-08-04] MEDS ORDERED: LOPERAMIDE 2 MG CAPSULE PO PRN (11:30)
[2020-08-04 12:49] VITALS: BP 101/67
[2020-08-04] MEDS ORDERED: INSULIN LISPRO 100 UNITS/ML, PEN SQ-INSULIN SCH (17:00)
[2020-08-04 20:00] VITALS: BP 152/81
[2020-08-04] MEDS: ATORVASTATIN 80 MG TABLET PO SCH (21:14)
[2020-08-04] MEDS: MELATONIN 5 MG TABLET PO SCH (21:14)
[2020-08-05] MEDS: HEPARIN 5,000 UNITS/ML, 1ML SQ SCH ×3 (00:30→14:19)
[2020-08-05 01:17] VITALS: BP 118/72
[2020-08-05 06:42] LABS: ALBUMIN 2.8 g/dL (3.4-5.0); ANION GAP 6 mmol/L (5-15); CALCIUM 8.3 mg/dL (8.5-10.1); CHLORIDE 112 mmol/L (98-107)
[2020-08-05 06:48] LABS: ALANINE AMINOTRANSFERASE 40 U/L (12-78); ALKALINE PHOSPHATASE 66 U/L (45-117); BILIRUBIN,TOTAL 0.4 mg/dL (0.2-1.0); CREATININE 1.36 mg/dL (0.7-1.3); TOTAL PROTEIN 7.1 g/dL (6.4-8.2)
[2020-08-05] MEDS ORDERED: INSULIN LISPRO 100 UNITS/ML, PEN SQ-INSULIN SCH ×3 (07:00→11:00)
[2020-08-05 07:26] VITALS: BP 130/86
[2020-08-05] MEDS: INSULIN LISPRO 100 UNITS/ML, PEN SQ-INSULIN SCH ×5 (08:00→20:41)
[2020-08-05] MEDS: SODIUM CHLORIDE FLUSH 10ML SYR IVF SCH ×4 (08:14→20:42)
[2020-08-05] MEDS: AZITHROMYCIN 500 MG TABLET PO SCH (08:28)
[2020-08-05] MEDS: LISINOPRIL 5 MG TABLET PO SCH (08:29)
[2020-08-05] MEDS: CHOLECALCIFEROL 5,000u TAB PO SCH (08:29)
[2020-08-05] MEDS: LINAGLIPTIN 5 MG TAB PO SCH (08:29)
[2020-08-05] MEDS: THIAMINE 100MG TABLET PO SCH (08:29)
[2020-08-05] MEDS: ISOSORBIDE MONONITRATE ER 30 MG TABLET PO SCH (08:29)
[2020-08-05] MEDS: ASCORBIC ACID 500 MG TABLET PO SCH ×2 (08:29→16:10)
[2020-08-05] MEDS: DEXAMETHASONE 4 MG/ML, 1ML IVPush SCH (08:30)
[2020-08-05] MEDS: ASPIRIN 81 MG TABLET EC PO SCH (08:30)
[2020-08-05] MEDS: POTASSIUM CHLORIDE 20 MEQ TAB.ER.PRT PO SCH (08:30)
[2020-08-05] MEDS: FUROSEMIDE 40 MG/4 ML IV SCH (08:30)
[2020-08-05] MEDS: REMDESIVIR 100 MG in SODIUM CHLORIDE 0.9% 250 ML IVPB SCH (08:30)
[2020-08-05] MEDS: ZINC SULFATE 220 MG CAPSULE PO SCH (08:30)
[2020-08-05] MEDS: CARVEDILOL 25 MG TABLET PO SCH ×2 (08:30→20:35)
[2020-08-05] MEDS: INSULIN GLARGINE 100 UNITS/ML, PEN SQ-INSULIN SCH ×2 (08:31→20:40)
[2020-08-05 13:29] VITALS: BP 114/72
[2020-08-05] MEDS: CEFTRIAXONE PMX 2GM/50ML 50 ML IVPB SCH (14:19)
[2020-08-05 18:28] VITALS: BP 141/84
[2020-08-05 20:30] VITALS: BP 149/90
[2020-08-05] MEDS: ATORVASTATIN 80 MG TABLET PO SCH (20:35)
[2020-08-05] MEDS: MELATONIN 5 MG TABLET PO SCH (20:36)
[2020-08-06] MEDS: HEPARIN 5,000 UNITS/ML, 1ML SQ SCH ×3 (00:39→17:00)
[2020-08-06 00:41] VITALS: BP 134/79
[2020-08-06 06:07] LABS: BASOPHILS % (AUTO) 0 % (0-1); EOSINOPHILS % (AUTO) 0 % (1-7); LYMPHOCYTES % (AUTO) 9 % (22-44); MEAN CORPUSCULAR HEMOGLOBIN 26.1 pg (27.5-34.5); MEAN CORPUSCULAR HGB CONC 32.6 g/dL (33.2-36.2); MEAN PLATELET VOLUME 8.7 fL (7.4-10.4); MONOCYTES % (AUTO) 11 % (2-9); NEUTROPHILS % (AUTO) 80 % (42-75); PLATELET COUNT 237 x10^3/uL (130-400); RED BLOOD COUNT 5.44 x10^6/uL (4.38-5.82); RED CELL DISTRIBUTION WIDTH 13.9 % (9.4-14.8)
[2020-08-06 06:15] LABS: CHLORIDE 111 mmol/L (98-107)
[2020-08-06 06:25] LABS: ALANINE AMINOTRANSFERASE 49 U/L (12-78); ALBUMIN 2.8 g/dL (3.4-5.0); ALKALINE PHOSPHATASE 68 U/L (45-117); ANION GAP 6 mmol/L (5-15); BILIRUBIN,TOTAL 0.4 mg/dL (0.2-1.0); CALCIUM 8.6 mg/dL (8.5-10.1); CREATININE 1.37 mg/dL (0.7-1.3); TOTAL PROTEIN 7.1 g/dL (6.4-8.2)
[2020-08-06 06:31] LABS: MD NO
[2020-08-06] MEDS: INSULIN LISPRO 100 UNITS/ML, PEN SQ-INSULIN SCH ×7 (06:42→20:40)
[2020-08-06 07:14] VITALS: BP 148/90
[2020-08-06] MEDS: REMDESIVIR 100 MG in SODIUM CHLORIDE 0.9% 250 ML IVPB SCH (08:41)
[2020-08-06] MEDS: AZITHROMYCIN 500 MG TABLET PO SCH (08:42)
[2020-08-06] MEDS: ISOSORBIDE MONONITRATE ER 30 MG TABLET PO SCH (08:42)
[2020-08-06] MEDS: SODIUM CHLORIDE FLUSH 10ML SYR IVF SCH ×4 (08:42→20:41)
[2020-08-06] MEDS: ASCORBIC ACID 500 MG TABLET PO SCH ×2 (08:42→15:17)
[2020-08-06] MEDS: ASPIRIN 81 MG TABLET EC PO SCH (08:43)
[2020-08-06] MEDS: FUROSEMIDE 40 MG TABLET PO SCH (08:43)
[2020-08-06] MEDS: CHOLECALCIFEROL 5,000u TAB PO SCH (08:43)
[2020-08-06] MEDS: SPIRONOLACTONE 25 MG TABLET PO SCH (08:43)
[2020-08-06] MEDS: POTASSIUM CHLORIDE 20 MEQ TAB.ER.PRT PO SCH (08:43)
[2020-08-06] MEDS: THIAMINE 100MG TABLET PO SCH (08:43)
[2020-08-06] MEDS: ZINC SULFATE 220 MG CAPSULE PO SCH (08:43)
[2020-08-06] MEDS: CARVEDILOL 25 MG TABLET PO SCH ×2 (08:43→20:39)
[2020-08-06] MEDS: LISINOPRIL 5 MG TABLET PO SCH (08:44)
[2020-08-06] MEDS: INSULIN GLARGINE 100 UNITS/ML, PEN SQ-INSULIN SCH ×2 (08:45→20:41)
[2020-08-06] MEDS: LINAGLIPTIN 5 MG TAB PO SCH (08:47)
[2020-08-06] MEDS: DEXAMETHASONE 4 MG/ML, 1ML IVPush SCH (08:48)
[2020-08-06 13:59] VITALS: BP 113/69
[2020-08-06 14:03] VITALS: BP 120/75
[2020-08-06] MEDS: CEFTRIAXONE PMX 2GM/50ML 50 ML IVPB SCH (15:17)
[2020-08-06 19:38] VITALS: BP 145/89
[2020-08-06 20:35] VITALS: BP 150/90
[2020-08-06] MEDS: MELATONIN 5 MG TABLET PO SCH (20:39)
[2020-08-06] MEDS: ATORVASTATIN 80 MG TABLET PO SCH (20:39)
[2020-08-07 00:35] VITALS: BP 132/81
[2020-08-07] MEDS: HEPARIN 5,000 UNITS/ML, 1ML SQ SCH ×3 (00:36→16:29)
[2020-08-07 05:56] LABS: ALBUMIN 2.8 g/dL (3.4-5.0); ANION GAP 6 mmol/L (5-15); CALCIUM 8.6 mg/dL (8.5-10.1); CHLORIDE 109 mmol/L (98-107)
[2020-08-07 05:58] LABS: ALANINE AMINOTRANSFERASE 56 U/L (12-78); ALKALINE PHOSPHATASE 69 U/L (45-117); BILIRUBIN,TOTAL 0.4 mg/dL (0.2-1.0); TOTAL PROTEIN 7.1 g/dL (6.4-8.2)
[2020-08-07 06:46] VITALS: BP 152/97
[2020-08-07] MEDS: INSULIN LISPRO 100 UNITS/ML, PEN SQ-INSULIN SCH ×6 (08:03→17:49)
[2020-08-07] MEDS: SODIUM CHLORIDE FLUSH 10ML SYR IVF SCH ×2 (09:00→09:06)
[2020-08-07] MEDS: ASCORBIC ACID 500 MG TABLET PO SCH ×2 (09:03→16:29)
[2020-08-07] MEDS: LISINOPRIL 5 MG TABLET PO SCH (09:03)
[2020-08-07] MEDS: ZINC SULFATE 220 MG CAPSULE PO SCH (09:04)
[2020-08-07] MEDS: SPIRONOLACTONE 25 MG TABLET PO SCH (09:04)
[2020-08-07] MEDS: THIAMINE 100MG TABLET PO SCH (09:04)
[2020-08-07] MEDS: CHOLECALCIFEROL 5,000u TAB PO SCH (09:04)
[2020-08-07] MEDS: AZITHROMYCIN 500 MG TABLET PO SCH (09:04)
[2020-08-07] MEDS: FUROSEMIDE 40 MG TABLET PO SCH (09:04)
[2020-08-07] MEDS: ISOSORBIDE MONONITRATE ER 30 MG TABLET PO SCH (09:04)
[2020-08-07] MEDS: LINAGLIPTIN 5 MG TAB PO SCH (09:04)
[2020-08-07] MEDS: POTASSIUM CHLORIDE 20 MEQ TAB.ER.PRT PO SCH (09:04)
[2020-08-07] MEDS: ASPIRIN 81 MG TABLET EC PO SCH (09:04)
[2020-08-07] MEDS: DEXAMETHASONE 4 MG/ML, 1ML IVPush SCH (09:05)
[2020-08-07] MEDS: CARVEDILOL 25 MG TABLET PO SCH (09:05)
[2020-08-07] MEDS: INSULIN GLARGINE 100 UNITS/ML, PEN SQ-INSULIN SCH (09:17)
[2020-08-07] MEDS: REMDESIVIR 100 MG in SODIUM CHLORIDE 0.9% 250 ML IVPB SCH (09:31)
[2020-08-07] MEDS ORDERED: FURO40TA6 PO (10:43)
[2020-08-07] MEDS ORDERED: THIA100T67 PO (10:43)
[2020-08-07] MEDS ORDERED: AZIT500T10 PO (10:43)
[2020-08-07] MEDS ORDERED: ZINC220C7 PO (10:43)
[2020-08-07] MEDS ORDERED: ASCO500T9 PO (10:43)
[2020-08-07] MEDS ORDERED: CHOL500045 PO (10:43)
[2020-08-07] MEDS ORDERED: CEFD300C37 PO (10:43)
[2020-08-07 12:08] VITALS: BP 125/81
[2020-08-07] MEDS: CEFTRIAXONE PMX 2GM/50ML 50 ML IVPB SCH (16:28)
== END 2020-08-07 20:49 | disposition home or self-care (01) | DRG 871 ==
LOC: ED 14:55 → EDIP 15:54 → 4WST 20:39 → 4EST 08-04 14:30
PROVIDERS: ADMIT Hospitalist; ATTEND Hospitalist
PROC: XW033E5 Introduction of Remdesivir Anti-infective into Peripheral Vein, Percutaneous Approach, New Technology Group 5 (ICD-10-PCS; principal; 2020-08-03)
DX: A41.89 Other specified sepsis (principal); J96.01 Acute respiratory failure with hypoxia; J12.89 Other viral pneumonia; U07.1 COVID-19; I13.0 Hypertensive heart and chronic kidney disease with heart failure and stage 1 through stage 4 chronic kidney disease, or unspecified chronic kidney disease; N17.9 Acute kidney failure, unspecified; N18.4 Chronic kidney disease, stage 4 (severe); E11.22 Type 2 diabetes mellitus with diabetic chronic kidney disease; R65.20 Severe sepsis without septic shock; E78.5 Hyperlipidemia, unspecified; I25.10 Atherosclerotic heart disease of native coronary artery without angina pectoris; I50.9 Heart failure, unspecified; T38.0X5A Adverse effect of glucocorticoids and synthetic analogues, initial encounter; Z82.49 Family history of ischemic heart disease and other diseases of the circulatory system; E11.65 Type 2 diabetes mellitus with hyperglycemia
CPT/HCPCS: 36415; 71045; 80048; 80053; 80076; 81001; 82040; 82436; 82570; 82947; 82962; 83605; 83615; 83735; 83880; 84133; 84145; 84300; 84439; 84443; 84484; 85025; 85379; 86140; 87040; 93005; 96374; 96375; 99285; G0378; J0456; J0696; J1100; J1644; J1940; J1815; J7030; J7050; U0003

== ENCOUNTER → 2020-08-20 | Outpatient (CLI) | payer OTHER ==
[~2020-08-20] MED LIST changes: +ASCO500T9 PO; +AZIT500T10 PO; +CEFD300C37 PO; +CHOL500045 PO; +FURO40TA6 PO; +THIA100T67 PO; +ZINC220C7 PO
== END | disposition home or self-care (01) ==
LOC: CVU 07:10
PROVIDERS: ATTEND Internal Medicine Cardiovascular Disease
DX: I11.9 Hypertensive heart disease without heart failure (principal); I25.10 Atherosclerotic heart disease of native coronary artery without angina pectoris; I42.9 Cardiomyopathy, unspecified
CPT/HCPCS: 93306; 93356